=== PATIENT | male | born 1965 | race Caucasian/White ===

== ENCOUNTER 2017-02-26 09:51 | Emergency (ER) | payer MEDICAID, OTHER ==
[~2017-02-26] VITALS: Wt 78.0 kg
[~2017-02-26 09:51] MED LIST: BACTDS PO; CEPH-443 PO; CLIN-73 PO; MTF1000T PO
[2017-02-26] MEDS ORDERED: KETOROLAC 30 MG INJ IM STA (10:12)
--- NOTE | 2017-02-26 10:21 | ERD ---
ER Documentation Chief Complaint Date/Time DATE: 02/26/17 TIME: 10:15 Chief Complaint RIGHT SHOULDER PAIN X4 DAYS, NO INJURY, NO CP HPI She is a 52-year-old male who presents to the ED with right shoulder and right sided chest wall pain 4 days. Patient is a elevator service mechanic and states that he likely injured himself on the job as he does use his arms and lift heavy objects. He states he has not had this pain in the past. He states that the pain comes and goes. He states that the pain is elicited when he brings his arm up and to the front. He denies chest pain or shortness of breath or cough. He denies nausea or vomiting. Denies headache or dizziness. Denies neck pain or neck stiffness. Denies palpitations. Denies syncopal episode. Has not taken any medication for his symptoms. Denies leg pain or leg swelling. ROS All systems reviewed and are negative except as per history of present illness. Medications Home Meds Active Scripts Naproxen* (Naprosyn*) 500 Mg Tablet, 500 MG PO BID Y for PAIN AND/OR INFLAMMATION, #30 TAB Prov:NINFA SANTIZO PA-C 02/26/17 Cephalexin* (Keflex*) 500 Mg Capsule, 500 MG PO QID for 7 Days, CAP Prov:XIMENA MARTINEZ PA-C 02/22/16 Sulfamethoxazole-Trimethoprim* (Bactrim* DS) 800-160 Mg Tab, 1 TAB PO BID for 7 Days, TAB Prov:XIMENA MARTINEZ PA-C 02/22/16 Metformin* (Glucophage*) 1,000 Mg Tablet, 1000 MG PO BID, #20 TAB Prov:TAHIRA KIM DO 09/12/15 Clindamycin Hcl* (Clindamycin Hcl*) 300 Mg Capsule, 300 MG PO TID for 10 Days, CAP Prov:TAHIRA KIM DO 09/12/15 Clindamycin Hcl* (Clindamycin Hcl*) 300 Mg Capsule, 300 MG PO TID for 10 Days, CAP Prov:TAHIRA KIM DO 07/25/15 Allergies Allergies: Coded Allergies: No Known Allergy (Unverified , 02/26/17) PMhx/Soc History of Surgery: Yes (colon surgery) Anesthesia Reaction: No Hx Neurological Disorder: No Hx Respiratory Disorders: No Hx Cardiac Disorders: Yes (HTN) Hx Psychiatric Problems: No Hx Miscellaneous Medical Probl: Yes (dm) Hx Alcohol Use: No Hx Substance Use: No Hx Tobacco Use: No Smoking Status: Never smoker FmHx Family History: No coronary disease, No diabetes, No other Physical Exam Vitals Vital Signs Date Time Temp Pulse Resp B/P Pulse Ox O2 Delivery O2 Flow Rate FiO2 02/26/17 09:57 97.8 68 17 143/98 98 Physical Exam GENERAL: Well-developed, well-nourished male. Appears in no acute distress. HEAD: Normocephalic, atraumatic. LUNG: Clear to auscultation bilaterally. No rhonchi, wheezing, rales or coarse breath sounds. Slight tenderness to the lateral edge of the right chest. HEART: Regular rate and rhythm. No murmurs, rubs or gallops. Extremities: Equal pulses bilaterally. No peripheral clubbing, cyanosis or edema. No unilateral leg swelling. Pain with full extension and flexion. Unable to fully abduct. Pain elicited with 90 flexion. No snuffbox tenderness. No pain in elbow. No open wounds or deformities. No step-offs. No open wounds or lacerations. Pulses intact. No wrist drop. No clavicle pain. NEUROLOGIC: Alert and oriented. Moving all four extremities. Normal speech. Steady gait. SKIN: Normal color. Warm and dry. No rashes or lesions. Capillary refill < 2 seconds Results 24 hrs Current Medications Medications (Trade) Dose Ordered Sig/Ranjith Route PRN Reason Start Time Stop Time Status Last Admin Dose Admin Ketorolac Tromethamine (Toradol) 30 mg ONCE STAT IM 02/26/17 10:12 02/26/17 10:14 DC 02/26/17 10:25 Procedures/MDM ER COURSE: I kept the patient and/or family informed of laboratory and diagnostic imaging results throughout the emergency room course. IMAGING STUDIES [place] [id number] Radiology Main Line: [phone] DIAGNOSTIC IMAGING REPORT Patient: YAHIR MORIN : 1965 Age: 52 Sex: M MR #: [id number] DOS: 02/26/17 1012 Ordering MD: NINFA SANTIZO PA-C Location: [facility] Room/Bed: PROCEDURE: Chest Radiograph. CLINICAL INDICATION: Chest pain TECHNIQUE: Single frontal chest radiograph. COMPARISON: None available FINDINGS: The cardiomediastinal silhouette is within normal limits. No infiltrate or effusion is seen. The bones are intact. IMPRESSION: 1. Unremarkable chest radiograph. RPTAT: KK .Ankit Schmitz MD, MD Date Time Electronically viewed and signed by .Ankit Schmitz MD, MD on 2016 11:17 .B/ CC: NINFA SANTIZO PA-C MEDICATIONS Toradol 30 mg IM. Tolerated well no adverse reaction. MEDICAL DECISION MAKING: This is a 52-year-old male who presents with right shoulder pain 4 days. Vital signs were reviewed. Patient is afebrile. Patient is not hypoxic. Patient's x- rays of by radiologist unremarkable for fracture dislocation. Patient likely has muscle strain versus sprain versus contusion. Low suspicion for dislocation , fracture, septic joint, compartment syndrome, osteomyelitis, cellulitis, avascular necrosis, neurological injury, vascular injury, tendon laceration. Low suspicion for ACS, PE, AAA, dissection, DVT. Patient was given a Toradol injection here and seen improvement in symptoms. Patient was given a sling. Neurovascularly intact post sling placement. DISCHARGE: At this time, patient is stable for discharge and outpatient management with no new complaints during the ER course. Patient was sent home with Aram and a copy of primary care providers to follow-up with. Patient will be discharged home with instructions to recheck for new or worsening symptoms such as fever, nausea, weakness, LOC and to follow up with primary care in the next 1-2 days. Patient was advised to return to the ER for any new or worsening symptoms. Plan was discussed and patient and/or family understands and agrees. Home instructions were given. Departure Diagnosis: Primary Impression: Shoulder pain Laterality: right Chronicity: acute Qualified Code: M25.511 - Acute pain of right shoulder Condition: Stable NINFA SANTIZO PA-C Feb 26, 2017 10:21
--- NOTE | 2017-02-26 11:17 | RADRPT ---
PROCEDURE: Chest Radiograph. CLINICAL INDICATION: Chest pain TECHNIQUE: Single frontal chest radiograph. COMPARISON: None available FINDINGS: The cardiomediastinal silhouette is within normal limits. No infiltrate or effusion is seen. Th e bones are intact. IMPRESSION: 1. Unremarkable chest radiograph. RPTAT: KK .Ankit Schmitz MD, MD Date Time Electronically viewed and signed by .Ankit Schmitz MD, on 02/26/2017 11:17 .B/
[2017-02-26] MEDS ORDERED: NAPR-260 PO (11:30)
--- NOTE | 2017-02-26 11:36 | RADRPT ---
PROCEDURE: XR Shoulder. CLINICAL INDICATION: Right shoulder pain TECHNIQUE: 3 views of the right shoulder are available for review. COMPARISON: None available FINDINGS: There is normal mineralization and alignment of the bones of the right shoulder. No acute fracture or dislocation is identified. The glenohumeral joint is within normal limits. The acromioclavicular joint is intact. The visualized portions of the right chest wall are grossly unremarkable. The sof t tissues are within normal limits. IMPRESSION: 1. Unremarkable right shoulder series. RPTAT: KK .Ankit Schmitz MD, Date Time Electronically viewed and signed by .Ankit Schmitz MD, on 02/26/2017 11:36 .B/
== END 2017-02-26 12:31 | disposition home or self-care (01) ==
LOC: FTE 09:51
DX: M25.511 Pain in right shoulder (principal); I10 Essential (primary) hypertension; E11.9 Type 2 diabetes mellitus without complications; Z79.84 Long term (current) use of oral hypoglycemic drugs
CPT/HCPCS: 71010; 73030; J1885; 96372

== ENCOUNTER 2017-04-10 07:54 | Emergency (ER) | payer MEDICAID ==
[~2017-04-10] VITALS: Ht 162.6 cm; Wt 76.5 kg
[~2017-04-10 07:54] MED LIST changes: +NAPR-260 PO
[2017-04-10 07:56] VITALS: Ht 162.6 cm; Wt 76.5 kg
[2017-04-10] MEDS ORDERED: KETOROLAC 30 MG INJ IM STA (08:06)
--- NOTE | 2017-04-10 08:44 | ERD ---
ER Documentation Chief Complaint Date/Time DATE: 04/10/17 TIME: 08:42 Chief Complaint NECK PAIN HPI 52-year-old male history of diabetes presents with intermittent right-sided neck pain radiating to his right shoulder, also complains of left lower dental pain for the past 2 weeks. He reports that he works with his hands a lot, he does a lot of cleaning. He complains of sharp pain on the right side of the neck radiating to the right shoulder, and has been seen here previously for the same pain. He was not sure what to take, and states that he has not taken anything for this recently. He denies any jaw pain, numbness, nausea, vomiting or chest pain. He denies trauma. ROS All systems reviewed and are negative except as per history of present illness. Medications Home Meds Active Scripts Naproxen* (Naprosyn*) 500 Mg Tablet, 500 MG PO BID Y for PAIN AND/OR INFLAMMATION, #30 TAB Prov:GILA JOHNSON PA-C 04/10/17 Amoxicillin* (Amoxicillin*) 500 Mg Cap, 500 MG PO TID for 7 Days, CAP Prov:GILA JOHNSON PA-C 04/10/17 Naproxen* (Naprosyn*) 500 Mg Tablet, 500 MG PO BID Y for PAIN AND/OR INFLAMMATION, #30 TAB Prov:NINFA SANTIZO PA-C 02/26/17 Cephalexin* (Keflex*) 500 Mg Capsule, 500 MG PO QID for 7 Days, CAP Prov:XIMENA MARTINEZ PA-C 02/22/16 Sulfamethoxazole-Trimethoprim* (Bactrim* DS) 800-160 Mg Tab, 1 TAB PO BID for 7 Days, TAB Prov:XIMENA MARTINEZ PA-C 02/22/16 Metformin* (Glucophage*) 1,000 Mg Tablet, 1000 MG PO BID, #20 TAB Prov:TAHIRA KIM DO 09/12/15 Clindamycin Hcl* (Clindamycin Hcl*) 300 Mg Capsule, 300 MG PO TID for 10 Days, CAP Prov:TAHIRA KIM DO 09/12/15 Clindamycin Hcl* (Clindamycin Hcl*) 300 Mg Capsule, 300 MG PO TID for 10 Days, CAP Prov:TAHIRA KIM DO 07/25/15 Allergies Allergies: Coded Allergies: No Known Allergy (Unverified , 02/26/17) PMhx/Soc History of Surgery: Yes (colon surgery) Anesthesia Reaction: No Hx Neurological Disorder: No Hx Respiratory Disorders: No Hx Cardiac Disorders: Yes (HTN) Hx Psychiatric Problems: No Hx Miscellaneous Medical Probl: Yes (dm) Hx Alcohol Use: Yes Hx Substance Use: No Hx Tobacco Use: No Physical Exam Vitals Vital Signs Date Time Temp Pulse Resp B/P Pulse Ox O2 Delivery O2 Flow Rate FiO2 04/10/17 07:56 97.6 84 18 146/84 99 Physical Exam General: Well-developed, well-nourished. The patient appears in no acute distress. HEENT: Head is normocephalic, atraumatic. No scleral icterus. Poor dentition throughout, multiple caries in teeth missing. No abscess. No submandibular swelling, no trismus, oropharynx is clear. Neck: Supple. Tender lateral aspect of C5 and C6. No midline tenderness or crepitus.No nuchal rigidity. Lungs: Clear to auscultation. Normal air movement. Heart: Regular rate and rhythm. S1 and S2 are normal. No murmurs, gallops, or rubs. Abdomen: Soft, nontender, nondistended. Bowel sounds are normoactive. Extremities: No clubbing or cyanosis. Normal pulses. Moving extremities x 4. No weakness. Neurologic: Alert and oriented 3. No focal deficits. Skin: Normal turgor. No rash or lesions. Results 24 hrs Current Medications Medications (Trade) Dose Ordered Sig/Ranjith Route PRN Reason Start Time Stop Time Status Last Admin Dose Admin Ketorolac Tromethamine (Toradol) 30 mg ONCE STAT IM 04/10/17 08:06 04/10/17 08:09 DC 04/10/17 08:18 DIAGNOSTIC IMAGING REPORT Patient: YAHIR MORIN : 1965 Age: 52 Sex: M [id number] DOS: 04/10/17 0806 Ordering MD: GILA JOHNSON PA-C Location: [facility] Room/Bed: PROCEDURE: XR Cervical Spine. CLINICAL INDICATION: Neck pain TECHNIQUE: 3 views of the cervical spine were performed. The images were reviewed on a PACS workstation. COMPARISON: None. FINDINGS: The normal cervical lordosis is well maintained. Alignment is intact. There is no evidence of acute fracture or dislocation. Vertebral body heights are well maintained. Intervertebral disc heights are well maintained. The odontoid is well centered within the lateral masses of C1. The prevertebral soft tissues are within normal limits. IMPRESSION: 1. Unremarkable cervical spine x-rays series. RPTAT: KK .Ankit Schmitz MD, Date Time Electronically viewed and signed by .Ankit Schmitz MD, MD on 2016 08:57 .B/ CC: GILA JOHNSON PA-C [facility] Medical decision makin-year-old male presents with right-sided neck pain going to his right shoulder, also complains of dental pain. Patient symptoms are consistent with cervical radiculopathy at C5, as his pain radiates to the right shoulder. X-rays of the cervical spine were obtained to rule out fracture or subluxation. Other differentials considered include neck mass, abscess, no meningitis, acute coronary syndrome, dissection, and among others. He also presents with dental pain, this does not appear to present with any neck pain associated with jaw pain, I doubt ACS. Patient's blood pressure was elevated (>120/80) but appears stable without evidence of hypertension emergency or urgency. The patient was counseled about the risks of hypertension and urged to pursue outpatient monitoring and therapy within a week with their primary care physician. Departure Diagnosis: Primary Impression: Neck pain Additional Impression: Pain, dental Condition: Good GILA JOHNSON PA-C Apr 10, 2017 08:44
--- NOTE | 2017-04-10 08:57 | RADRPT ---
PROCEDURE: XR Cervical Spine. CLINICAL INDICATION: Neck pain TECHNIQUE: 3 views of the cervical spine were performed. [facility] COMPARISON: None. FINDINGS: The normal cervical lordosis is well maintained. Alignment is intact. There is no evidence of acut e fracture or dislocation. Vertebral body heights are well maintained. Intervertebral disc heights are well maintained. The odontoid is well centered within the lateral masses of C1. The preverteb ral soft tissues are within normal limits. IMPRESSION: 1. Unremarkable cervical spine x-rays series. RPTAT: KK .Ankit Schmitz MD, MD Date Time Electronically viewed and signed by .Ankit Schmitz MD, MD on 04/10/2017 08:57 .B/
[2017-04-10] MEDS ORDERED: NAPR-260 PO (09:00)
[2017-04-10] MEDS ORDERED: AMO500 PO (09:00)
== END 2017-04-10 09:21 | disposition home or self-care (01) ==
LOC: FTE 07:54
DX: M54.2 Cervicalgia (principal); K08.89 Other specified disorders of teeth and supporting structures; I10 Essential (primary) hypertension; E11.9 Type 2 diabetes mellitus without complications; Z79.84 Long term (current) use of oral hypoglycemic drugs
CPT/HCPCS: 72040; 96372; J1885; Z7502

== ENCOUNTER 2019-05-12 18:41 | Emergency (ER) | payer MEDICAID, OTHER ==
[~2019-05-12] VITALS: Ht 157.5 cm; Wt 63.7 kg
[~2019-05-12 18:41] MED LIST changes: +AMOX500C2 PO; -CLIN-73 PO; +CLIN300C10 PO; -NAPR-260 PO; +NAPR-985 PO
[2019-05-12 18:44] VITALS: Ht 157.5 cm; Wt 63.7 kg
[2019-05-12] MEDS ORDERED: KETOROLAC 15 MG INJ IV STA (20:32)
[2019-05-12] MEDS ORDERED: INSULIN ASPART [NOVOLOG] 3 ML PEN SC ONE (22:00)
[2019-05-12 23:10] VITALS: BP 152/83; PULSE 79; RESP 20
== END 2019-05-12 23:11 | disposition home or self-care (01) ==
LOC: E/R 18:41
DX: R10.32 Left lower quadrant pain (principal); I10 Essential (primary) hypertension; E11.9 Type 2 diabetes mellitus without complications; Z79.84 Long term (current) use of oral hypoglycemic drugs
CPT/HCPCS: 36415; 74176; 80053; 81003; 82962; 85025; 96372; 96374; J1815; J1885; Z7502

== ENCOUNTER 2019-07-07 13:58 | Emergency (ER) | payer SELFPAY ==
[~2019-07-07] VITALS: Ht 165.1 cm; Wt 90.0 kg
[~2019-07-07 13:58] MED LIST changes: +AMOX1TAB10 PO; -AMOX500C2 PO; -BACTDS PO; -CEPH-443 PO; -CLIN300C10 PO; -MTF1000T PO
[2019-07-07 14:01] VITALS: BP 150/88; PULSE 88; RESP 18; Ht 165.1 cm; Wt 90.0 kg
[2019-07-07] MEDS ORDERED: HYDROCODONE/APAP (5/325) TAB PO ONE (16:00)
== END 2019-07-07 15:59 | disposition home or self-care (01) ==
LOC: FTE 13:58
DX: K08.89 Other specified disorders of teeth and supporting structures (principal); I10 Essential (primary) hypertension; E11.9 Type 2 diabetes mellitus without complications
CPT/HCPCS: 99283